=== PATIENT | female | born 1965 | race Two or more races ===

== ENCOUNTER 2020-07-31 22:22 | Emergency (ER) | payer OTHER ==
[~2020-07-31] VITALS: Ht 165.1 cm; Wt 86.2 kg
[2020-08-01 00:30] VITALS: BP 121/79
[2020-08-01] MEDS ORDERED: methylPREDNISolone SOD SUCC 125 MG/2 ML VL IM ONE (00:45)
== END 2020-08-01 01:34 | disposition home or self-care (01) ==
LOC: ER 22:34
DX: S60.862A Insect bite (nonvenomous) of left wrist, initial encounter (principal); E11.9 Type 2 diabetes mellitus without complications; E78.5 Hyperlipidemia, unspecified; I10 Essential (primary) hypertension; W57.XXXA Bitten or stung by nonvenomous insect and other nonvenomous arthropods, initial encounter; Y93.89 Activity, other specified; Y92.89 Other specified places as the place of occurrence of the external cause; Y99.8 Other external cause status
CPT/HCPCS: 96372; 99283; J2930